=== PATIENT | male | born 1945 | race Caucasian/White ===

== ENCOUNTER 2024-11-05 13:23 | Emergency (ER) | payer MEDICARE, BC, SELFPAY ==
[2024-11-05 13:31] VITALS: BP 106/69
--- NOTE | 2024-11-05 14:40 | ED.GENMED ---
History of Present Illness
General
Chief Complaint: Fall
Source: patient
Time Seen by Provider: 11/05/24 14:33
History of Present Illness
History of Present Illness:
79-year-old male with past medical history of hypertension, hyperlipidemia, uch-[id number]-[id number] diabetes presenting to the emergency department for evaluation of right lower flank/back discomfort after an accidental fall this past Tuesday where
patiently fell forward onto the toilet, has mild bruising to the area and was concerned for rib injury. Patient states pain worsens with deep inspiration or coughing. Denies shortness of breath. No other injury sustained. Denies any
anticoagulants or head injury.
Past History
Past History
ED Past Medical History: Cancer, HTN, Hypercholesterolemia and NIDDM
ED Past Surgical History: Cholecystectomy, Orthopedic and Urological; Negative Cardiac
Social History
Tobacco: Non-smoker
Alcohol: None
Drug: None
Personal:
Living: with family
Employment: Retired
Family History
Family History: Hypertension
Review of Systems
Review of Systems
All Other Systems: ROS reviewed and negative except as documented in HPI and ROS
Phy Exam
Physical Exam
Physical Exam:
GENERAL: Alert , in no apparent distress
EYE: conjunctiva clear
NECK: Supple
ENT: o/p clr, mmm.
CARDIAC: Regular rate and rhythm
LUNGS: Clear breath sounds bilaterally, no acute respiratory distress, no wheezes/rales/rhonchi, mild tenderness over the area of ecchymosis within the right flank area
NEUROLOGICAL: Alert and oriented
SKIN: Warm and dry, skin intact. Ecchymosis to right flank area appears older and well-healing
MUSCULOSKELETAL: well perfused.
PSYCH: Normal and appropriate interaction.
Scores
Heart Failure Risk
Heart Failure Risk Score: Not Applicable
Heart Score for Chest Pain Patients
STEMI patient?: Not applicable
Withdrawal Assessment of Alcohol
Withdrawal Assessment Completed?: Not applicable
Course
Orders/Labs/Results
Orders:
Orders
11/05/24 13:35
CR Ribs-right 3 Vw W/pa Chest* Urgent
Comment:
Reason For Exam: fall
Vital Signs
Initial and Last Documented VS:
Initial Vital Signs
Temp Pulse Resp BP Pulse Ox
98.1 F 90 20 106/69 98
11/05/24 13:31 11/05/24 13:31 11/05/24 13:31 11/05/24 13:31 11/05/24 13:31
Last Documented Vital Signs
Temp Pulse Resp BP Pulse Ox
98.1 F 90 20 106/69 98
11/05/24 13:31 11/05/24 13:31 11/05/24 13:31 11/05/24 13:31 11/05/24 13:31
MDM/Problems Addressed
Differential Diagnosis Includes:
Rib fracture, contusion, pneumothorax, visceral injury
MDM/Problems Addressed:
79-year-old male presenting to the ER for evaluation after sustaining an accidental fall 5 days ago, continued pain to the right flank area with well-healing ecchymosis. Rib series performed which shows minimal displaced rib fractures of ribs 10
and 11. No other injuries noted. Patient hemodynamically stable and in no acute distress. I do not have concern for visceral injury given patient's stability 5 days following the injury. Patient stable for discharge home. Continue
NSAIDs/Tylenol as needed for pain. Will give short-term prescription for Clawson to be used for breakthrough pain. Patient advised on taking continued deep inspiration for prevention of atelectasis/pneumonia. Stable for discharge home.
*Radiology
Radiology exam reviewed: preliminary read by ED provider (10th and 11th rib fracture, no pneumothorax)
*Pulse Oximetry
Patient hypoxic: no
*Critical Care Note
Total Time (30-74mins, 75-104mins- exclusive of procedures): Not Applicable
ED Attending Note
-
Portions of this chart may have been created with voice recognition software.� Occasional wrong word or��sound alike� substitutions may have occurred due to the inherent limitations of voice recognition software.
Discharge Plan
Departure
Patient Disposition: Home (Routine Discharge)
Date of Disposition: 11/05/24
Time of Disposition: 14:40
Patient with high blood pressure during this ER visit?: No
Discharge Problem:
Accidental fall, Fracture of rib of right side
Instructions: Rib fracture or bruised rib - ED discharge instructions
Prescriptions:
New
hydrocodone-acetaminophen 5-325 mg tablet
1 tab PO BID PRN (Reason: Pain) Qty: 10 0RF
Rx Instructions:
Take stool softener with med to help with constipation
No Action
labetalol 200 MG tablet
200 mg PO BID
sertraline 100 MG tablet
200 mg PO DAILY
verapamil [Calan SR] 180 MG tablet extended release
240 mg PO DAILY
metformin 850 MG tablet
850 mg PO BID
trazodone 100 MG tablet
100 mg PO HS
aspirin 81 MG tablet,chewable
81 mg PO DAILY
hydrochlorothiazide 25 MG tablet
25 mg PO DAILY
lisinopril [Prinivil] 40 MG tablet
40 mg PO DAILY
rosuvastatin 20 MG tablet
20 mg PO QPM
cyclobenzaprine 10 MG tablet
10 mg PO TIDPRN PRN (Reason: muscle spasm) Qty: 12 0RF
hydrocodone-acetaminophen [Vicodin] 1 EACH tablet
1 ea PO Q4 PRN (Reason: pain) Qty: 14 0RF
Interventions
Interventions:
*Risk Screen - Suicide Last Done: 11/05/24 13:31
*General Assessment Last Done: 11/05/24 13:31
*Neglect/Abuse Screening Last Done: 11/05/24 13:31
ED-Musculoskeletal Assessment Last Done: 11/05/24 14:46
ED- Neurological Assessment Last Done: 11/05/24 14:46
ED-Skin Assessment Last Done: 11/05/24 14:46
Discharge Date and Time
Print Language: FRENCH
== END 2024-11-05 14:50 | disposition home or self-care (01) ==
LOC: EMR 13:23
PROVIDERS: EMERGENCY PHYSICIAN Student in an Organized Health Care Education/Training Program
DX: S22.41XA Multiple fractures of ribs, right side, initial encounter for closed fracture (principal); S30.1XXA Contusion of abdominal wall, initial encounter; W18.39XA Other fall on same level, initial encounter; I10 Essential (primary) hypertension; E78.00 Pure hypercholesterolemia, unspecified; E11.9 Type 2 diabetes mellitus without complications
CPT/HCPCS: 99283; 71101

== ENCOUNTER → 2025-02-25 14:31 | Outpatient (REF) | payer OTHER, SELFPAY | LOC: RCS 14:31 | PROVIDERS: ATTENDING PHYSICIAN Family Medicine | DX: R06.09 Other forms of dyspnea (principal) | CPT/HCPCS: 93306 ==

== ENCOUNTER 2025-02-26 16:17 | Inpatient (IN) | payer OTHER, SELFPAY ==
[2025-02-26 12:43] VITALS: BP 122/81
[2025-02-26 13:12] LABS: Hematocrit 38.1 % (39.0-52.0); Hemoglobin 12.8 g/dL (13.0-18.0); Mean Corp Hgb Conc. 33.6 g/dL (33.0-37.0); Mean Corpuscular Volume 87.0 fL (80.0-94.0); Nucleated Red Blood Cells % 0 % (-); Platelet Count 166 10^3/uL (130-400); Red Cell Dist. Width 13.2 % (11.5-14.5)
[2025-02-26 13:45] LABS: ALT (SGPT) 19 U/L (0-50); AST (SGOT) 25 U/L (17-59); Albumin 4.2 g/dl (3.5-5.0); Alkaline Phosphatase 40 U/L (38-126); Blood Urea Nitrogen 23 mg/dl (9-20); Calcium 9.2 mg/dl (8.4-10.2); Carbon Dioxide 25 mmol/L (22-30); Chloride 106 mmol/L (98-107); Glucose 282 mg/dl (70-99); Potassium 4.1 mmol/L (3.5-5.1); Sodium 141 mmol/L (135-145); Total Protein 6.5 g/dl (6.3-8.2); eGFR 56.58
[2025-02-26 13:54] LABS: Troponin I 0.023 ng/ml
--- NOTE | 2025-02-26 14:23 | ED.GENMED ---
History of Present Illness
<Ken Hickman MD, Resident - Last Filed: 02/26/25 14:28>
General
Chief Complaint: Cardiac Symptoms
Time Seen by Provider: 02/26/25 14:22
<Juan Miguel Saldivar MD - Last Filed: 02/26/25 15:11>
History of Present Illness
History of Present Illness:
Patient is a 79-year-old male with history of diabetes, hypertension, hyperlipidemia presenting to the emergency department for further evaluation. Patient states that he had an echo completed yesterday has been having dyspnea on exertion for the
past few months. No orthopnea edema or weight gain. No chest pain. Per chart review he had an echo completed yesterday that showed: -Left ventricular ejection fraction is 25-30%. Global hypokinesis with inferior
akinesis and septal dyskinesis. Abnormal (paradoxical) septal motion consistent
with left bundle branch block.
-Normal right ventricular size and function.
-Mild aortic stenosis; peak/mean gradients are 23/12 mmHg, calculated CHIVO of
1.5 cm2. Mild aortic regurgitation.
Past History
<Ken Hickman MD, Resident - Last Filed: 02/26/25 14:28>
Past History
ED Past Medical History: Cancer, HTN, Hypercholesterolemia and NIDDM
ED Past Surgical History: Cholecystectomy, Orthopedic and Urological; Negative Cardiac
Social History
Tobacco: Non-smoker
Alcohol: None
Drug: None
Personal:
Living: with family
Employment: Retired
Family History
Family History: Hypertension
Phy Exam
<Juan Miguel Saldivar MD - Last Filed: 02/26/25 15:11>
Physical Exam
Physical Exam:
GENERAL: in no acute distress
HEENT: normocephalic, extraocular movements intact, moist oral mucosa
NECK: normal inspection
RESPIRATORY: no respiratory distress, clear to auscultation bilaterally
CARDIOVASCULAR: regular rate and rhythm
ABDOMEN/: soft, non-distended, non-tender to palpation, no rebound or guarding
EXTREMITIES: non-tender, no edema/swelling
NEUROLOGIC: awake and alert, moves all extremities
SKIN: warm
Course
<Ken Hickman MD, Resident - Last Filed: 02/26/25 14:28>
Orders/Labs/Results
Orders:
Orders
02/26/25 12:23
Electrocardiogram (*1) Urgent
Reason for Study: Shortness of Breath
EKG- Treatment ONCE
02/26/25 12:59
Complete Blood Count/With Diff Urgent
Comprehensive Metabolic Panel Urgent
Troponin I Urgent
02/26/25 14:47
Add On- LAB Routine
Tests Added?: proBNP, Hgba1c
02/26/25 15:05
CXR2 [CR Chest - 2 Views ] Routine
Comment:
Reason For Exam: Shortness of breath, HFrEF
02/26/25 15:10
Consult Cardiology [CARDIOLOGY CONSULT] Urgent
Consulting Provider: Alonso Mcknight
Was physician already notified: Yes
Abnormal Lab Results
02/26/25
12:59
RBC 4.38 L 10^6/uL
(4.70-6.10)
Hgb 12.8 L g/dL
(13.0-18.0)
Hct 38.1 L %
(39.0-52.0)
Lymphocytes % 18.3 L %
(20.5-51.1)
BUN 23 H mg/dl
(9-20)
Glucose 282 H mg/dl
(70-99)
02/26/25 12:59
02/26/25 12:59
Vital Signs
Initial and Last Documented VS:
Initial Vital Signs
Temp Pulse Resp BP Pulse Ox
98.4 F 82 18 122/81 99
02/26/25 12:43 02/26/25 12:43 02/26/25 12:43 02/26/25 12:43 02/26/25 12:43
Last Documented Vital Signs
Temp Pulse Resp BP Pulse Ox
98.4 F 82 18 122/81 99
02/26/25 12:43 02/26/25 12:43 02/26/25 12:43 02/26/25 12:43 02/26/25 14:23
<Juan Miguel Saldivar MD - Last Filed: 02/26/25 15:11>
Orders/Labs/Results
Orders:
Orders
02/26/25 12:23
Electrocardiogram (*1) Urgent
Reason for Study: Shortness of Breath
EKG- Treatment ONCE
02/26/25 12:59
Complete Blood Count/With Diff Urgent
Comprehensive Metabolic Panel Urgent
Troponin I Urgent
02/26/25 14:47
Add On- LAB Routine
Tests Added?: proBNP, Hgba1c
02/26/25 15:05
CXR2 [CR Chest - 2 Views ] Routine
Comment:
Reason For Exam: Shortness of breath, HFrEF
02/26/25 15:10
Consult Cardiology [CARDIOLOGY CONSULT] Urgent
Consulting Provider: Alonso Mcknight
Was physician already notified: Yes
Abnormal Lab Results
02/26/25
12:59
RBC 4.38 L 10^6/uL
(4.70-6.10)
Hgb 12.8 L g/dL
(13.0-18.0)
Hct 38.1 L %
(39.0-52.0)
Lymphocytes % 18.3 L %
(20.5-51.1)
BUN 23 H mg/dl
(9-20)
Glucose 282 H mg/dl
(70-99)
02/26/25 12:59
02/26/25 12:59
Vital Signs
Initial and Last Documented VS:
Initial Vital Signs
Temp Pulse Resp BP Pulse Ox
98.4 F 82 18 122/81 99
02/26/25 12:43 02/26/25 12:43 02/26/25 12:43 02/26/25 12:43 02/26/25 12:43
Last Documented Vital Signs
Temp Pulse Resp BP Pulse Ox
98.4 F 82 18 122/81 99
02/26/25 12:43 02/26/25 12:43 02/26/25 12:43 02/26/25 12:43 02/26/25 14:23
<Juan Miguel Saldivar MD - Last Filed: 02/26/25 15:11>
MDM/Problems Addressed
Differential Diagnosis Includes:
Patient is a 79-year-old male with history of hypertension, hyperlipidemia presented to the emergency department for further evaluation after an abnormal echo. His only symptom currently is dyspnea on exertion. On arrival patient's lungs are clear
to auscultation and he does not appear volume overloaded. He does not appear to be in a CHF exacerbation. EKG per my interpretation consistent with left bundle branch block. Discussed with cardiology who recommended hospitalist admission. They
will eval patient here in the ED.
<Ken Hickman MD, Resident - Last Filed: 02/26/25 14:28>
*Pulse Oximetry
SaO2: 99
Oxygen Mode of Delivery: Room air
<Juan Miguel Saldivar MD - Last Filed: 02/26/25 15:11>
*Pulse Oximetry
Patient hypoxic: no (99)
*Critical Care Note
Total Time (30-74mins, 75-104mins- exclusive of procedures): Not Applicable
ED Attending Note
<Ken Hickman MD, Resident - Last Filed: 02/26/25 14:28>
-
Portions of this chart may have been created with voice recognition software.� Occasional wrong word or��sound alike� substitutions may have occurred due to the inherent limitations of voice recognition software.
Discharge Plan
Departure
Patient Disposition: Admit
Date of Disposition: 02/26/25
Time of Disposition: 15:09
Presentation/result/management discussed w/ accepting MD/DO: Hospitalist
Discharge Problem:
Dyspnea on exertion
Prescriptions:
No Action
labetalol 200 MG tablet
200 mg PO BID
sertraline 100 MG tablet
200 mg PO DAILY
verapamil [Calan SR] 180 MG tablet extended release
240 mg PO DAILY
metformin 850 MG tablet
850 mg PO BID
trazodone 100 MG tablet
100 mg PO HS
aspirin 81 MG tablet,chewable
81 mg PO DAILY
hydrochlorothiazide 25 MG tablet
25 mg PO DAILY
lisinopril [Prinivil] 40 MG tablet
40 mg PO DAILY
rosuvastatin 20 MG tablet
20 mg PO QPM
cyclobenzaprine 10 MG tablet
10 mg PO TIDPRN PRN (Reason: muscle spasm) Qty: 12 0RF
hydrocodone-acetaminophen [Vicodin] 1 EACH tablet
1 ea PO Q4 PRN (Reason: pain) Qty: 14 0RF
hydrocodone-acetaminophen 5-325 mg tablet
1 tab PO BID PRN (Reason: Pain) Qty: 10 0RF
Rx Instructions:
Take stool softener with med to help with constipation
Referrals:
Claritza Edward MD [Family Provider, Family Practice]
Interventions
Interventions:
*Risk Screen - Suicide Last Done: 02/26/25 12:43
*General Assessment Last Done: 02/26/25 12:43
*Neglect/Abuse Screening Last Done: 02/26/25 12:43
Discharge Date and Time
Print Language: CITIZEN OF [place]
--- NOTE | 2025-02-26 14:43 | CON.CAR ---
Addendum entered and electronically signed by Alonso Mcknight MD 02/26/25 16:01:
I saw and examined the patient.
The CLEANING MATRON's note was reviewed and I agree with the note.
Comment: 79-year-old male with LBBB, hypertension, dyslipidemia, type 2 diabetes mellitus, depression, and testicular cancer who presented to the emergency department with a chief complaint of dyspnea on exertion. He had an echocardiogram that
showed an LVEF of 25-30%.
- RHC/LHC tomorrow
- GDMT with Case management [id number] and ARNi
Original Note:
Consultation
Consultation Request
Date/Time Consultation Requested: 02/26/2025 14:30
Date/Time Consultation Performed: 02/26/2025 14:45
Requesting Provider: Dr. Saldivar
Performing Provider: AIMEE Cid for Dr. Mcknight
Reason for Consultation: Abnormal echocardiogram
Medical History
-
Chief Complaint: Dyspnea on exertion
History of Present Illness:
Dakota Navarro is a 79-year-old male with LBBB, hypertension, dyslipidemia, type 2 diabetes mellitus, depression, and testicular cancer who presented to the emergency department with a chief complaint of dyspnea on exertion. This started 6 months ago.
It has been getting worse. It is exceptionally worse when he uses the steps. He was referred for stress testing and echocardiogram by his PCP. He had an echocardiogram that showed an LVEF of 25-30%. An ETT was ordered but he has a left bundle
branch block. At the time of this consultation, he was not short of breath at rest.
Past Medical History
Past Medical History: Cancer (Testicular), HTN, Hypercholesterolemia, NIDDM and Psychiatric (Depression)
Past Surgical History: Cholecystectomy, Orthopedic and Urological (Orchiectomy for testicular cancer)
Social History
Tobacco: Non-Smoker
Alcohol: None
Drug: None
Living: Alone (On daughter's property)
Employment: Retired
Family History
Family History: Reviewed & Not Pertinent
Allergies / Home Medications
Allergy/AdvReac Type Severity Reaction Status Date / Time
No Known Allergies Allergy Verified 02/26/25 12:43
�Medication �Instructions �Recorded �Confirmed �Type
aspirin 81 mg chewable tablet 81 mg PO DAILY 10/16/12 07/11/14 History
hydrochlorothiazide 25 mg tablet 25 mg PO DAILY 10/16/12 07/11/14 History
labetalol 200 mg tablet 200 mg PO BID 10/16/12 07/11/14 History
lisinopril 40 mg tablet (Prinivil) 40 mg PO DAILY 10/16/12 07/11/14 History
metformin 850 mg tablet 850 mg PO BID 10/16/12 07/11/14 History
rosuvastatin 20 mg tablet 20 mg PO QPM 10/16/12 07/11/14 History
sertraline 100 mg tablet 200 mg PO DAILY 10/16/12 07/11/14 History
trazodone 100 mg tablet 100 mg PO HS 10/16/12 07/11/14 History
verapamil 180 mg tablet,extended 240 mg PO DAILY 10/16/12 07/11/14 History
release (Calan SR)
cyclobenzaprine 10 mg tablet 10 mg PO TIDPRN PRN muscle spasm 07/11/14 Rx
#12 tabs
hydrocodone 5 mg-acetaminophen 300 1 ea PO Q4 PRN pain #14 tabs 07/11/14 Rx
mg tablet (Vicodin)
hydrocodone 5 mg-acetaminophen 325 1 tab PO BID PRN Pain #10 tabs 11/05/24 Rx
mg tablet
Review of Systems
-
History Source: Patient
All other systems: Negative unless noted
Constitutional: No Symptoms
EENT: No Symptoms
Respiratory: No Symptoms
Cardiac: No Symptoms
Abdomen/GI: No Symptoms
: No Symptoms
Musculoskeletal: No Symptoms
Skin: No Symptoms
Neurological: No Symptoms
Endocrine: No Symptoms
Hematologic/Lymphatic: No Symptoms
Physical Exam
Vital Signs
Temp Pulse Resp BP Pulse Ox
98.4 F 82 18 122/81 99
02/26/25 12:43 02/26/25 12:43 02/26/25 12:43 02/26/25 12:43 02/26/25 14:23
Lab Results
02/26/25 12:59
02/26/25 12:59
Troponin I 0.023 ng/ml 02/26/25 12:59
Physical Exam
General: Well Developed, Well Nourished, No Apparent Distress and Comfortable
HEENT: Normocephalic, Anicteric and Moist Mucous Membranes
Respiratory: Clear and Non Labored Respirations
Cardiac: S1/S2 and Regular Rhythm
Breast: Deferred by me
GI: Soft, Non Tender, Non Distended and Normal Bowel Sounds
Rectal: Deferred by Provider
Genito-urinary: No Costovertebral Tender
Musculoskeletal: No Clubbing, No Cyanosis and No Edema
Skin: Warm and Dry
Neuro: AO x 3
Hematologic/Lymphatic: No Lymphadenopathy
Psych: Calm
Impression / Plan
-
I/P: 79M with LBBB, hypertension, dyslipidemia, type 2 diabetes mellitus, depression, and testicular cancer who presented to the emergency department with a chief complaint of dyspnea on exertion.
Outpatient distribution designer: None, will be Dr. Mcknight
HFrEF (EF 25-30%), acute on chronic
Cardiomyopathy, type unknown
- Hold diuresis, await proBNP and CXR
- Cardiac catheterization tomorrow, he believes he had one 'a number of years ago' he is unsure of which facility, continue ASA
- GDMT as tolerated:
-NIKOLAI/ARB/ARNI: Case Management to [facility] Entresto. Hold lisinopril.
-SGLT2 inhibitor: [facility] Management to [facility]
-Aldosterone agonist: No hyperkalemia, can consider
-Beta david: Start metoprolol succinate 25mg twice daily. Stop verapamil.
-Isosorbide/Hydralazine:�Not currently indicated
-ICD: Re-assess LVEF in 3 months after maximally tolerated therapy
- Trend daily weight, I/O, and BMP
CKD
- Creatinine 1.27 last year
- Trend
Aortic stenosis, mild, peak/mean gradients 23/12 mmHg, CHIVO 1.5 cm2
LBBB, chronic
Type 2 diabetes mellitus, with hyperglycemia, HgbA1c pending, per primary service
Dyslipidemia, most recent LDL 80 last year, fasting lipid panel in am
Data Reviewed
-
EKG: Report Reviewed by me
Medical Tests (Nuc Med, Echo etc): Report Reviewed by me
Labs: Labs Reviewed by me
Old Records: Reviewed
--- NOTE | 2025-02-26 15:23 | HPS.HSE ---
Family Physician
-
Family Physician: Claritza Edward MD
Chief Complaint
-
Dyspnea on Exertion
History of Present Illness
Patient is a 79 y/o male past medical history of DM, CKD, HTN, Hyperlipidemia and Depression who presents with dyspnea on exertion. Patient reports increasing dyspnea on exertion for the past several months. Symptoms have worsened to the point he
cannot walk up a flight of stairs without feeling short of breath. Patient had an echocardiogram yesterday which revealed significantly reduced EF as well global hypokinesis with inferior wall akineses. After receiving the result patient was
referred to the emergency departmen for evaliation. Ptient denies any chest pain, palpitaitons or lower extremity edema.
Medical History
Past Medical History
Past Medical History: Reports Other
Additional Past Medical History:
Diabetes Mellitus, Type II
Essential Hypertension
Hyperlipidemia
CKD Stage
Depression
Insomnia
Testicular Cancer
Past Surgical History: Reports Other
Additional Past Surgical History:
Orchiectomy with Lymph Node Dissection
Cholecystectomy
Spinal Surgery
Social History
Tobacco: Non-smoker
Alcohol: None
Family History
Family History: Not pertinent
Allergies / Home Medications
Allergies reflects when Allergies were last updated in [employer].
Home Medications with original date entered in [employer]
Allergy/Medication List:
Allergies
Allergy/AdvReac Type Severity Reaction Status Date / Time
No Known Allergies Allergy Verified 02/26/25 12:43
Home Medications
aspirin 81 mg chewable tablet 81 mg PO DAILY 10/16/12
hydrochlorothiazide 25 mg tablet 25 mg PO DAILY 10/16/12
rosuvastatin 20 mg tablet 20 mg PO DAILY 10/16/12
duloxetine 60 mg capsule,delayed release 60 mg PO DAILY 02/26/25
glipizide 10 mg tablet 10 mg PO BID 02/26/25
lisinopril 40 mg tablet 40 mg PO DAILY 02/26/25
sitagliptin phos 50 mg-metformin ER 1,000 mg tablet,extend rel 24h mp (Janumet XR) 1 tab PO BID 02/26/25
therapeutic multivitamin 1 tab PO DAILY 02/26/25
verapamil 240 mg tablet,extended release 240 mg PO DAILY 02/26/25
Review of Systems
-
History Source: Patient
A 12 point ROS was completed and negative except as noted: Yes
Constitutional: Denies Fever or Chills
Respiratory: Reports Trouble Breathing; Denies Cough
Cardiac: Denies Chest Pain or Palpitations
Abdomen/GI: Denies Abdominal Pain, Nausea, Vomiting, Diarrhea or Constipated
Physical Exam
Vital Signs
Vital Signs
Temp Pulse Resp BP Pulse Ox
98.4 F 82 18 122/81 99
02/26/25 12:43 02/26/25 12:43 02/26/25 12:43 02/26/25 12:43 02/26/25 14:23
Physical Exam
General: Well Developed, Well Nourished and No Apparent Distress
HEENT: NormoCephalic, Anicteric, Moist mucous membranes and Atraumatic
Respiratory: Clear and Non Labored Respirations; No Wheezes, Rales or Rhonchi
Cardiac: S1/S2, Regular Rhythm and Murmur (Systolic Murmur)
GI: Soft, Non Tender, Non Distended and Normal Bowel Sounds
Rectal: Deferred by Provider
Musculoskeletal: No Clubbing, No Cyanosis and No Edema
Skin: Warm and Dry; No Rash
Neuro: Awake, Alert, Oriented and Nonfocal/grossly intact
Psych: Calm
Laboratory Results
-
02/26/25 12:59
02/26/25 12:59
Laboratory Results
Total Bilirubin 0.7 mg/dl (0.2-1.3) 02/26/25 12:59
AST 25 U/L (17-59) 02/26/25 12:59
ALT 19 U/L (0-50) 02/26/25 12:59
Alkaline Phosphatase 40 U/L (38-126) 02/26/25 12:59
Troponin I 0.023 ng/ml 02/26/25 12:59
Data Reviewed
-
Diagnostic Radiology: Report Reviewed by me
Medical Tests (Nuc Med, Echo, EKG etc): Report Reviewed by me
Lab Data: Labs Reviewed by me
Impression/Plan
-
Newly Diagnosed Heart Failure with Reduced EF
Newly Diagnosed Cardiomyopathy, unknown type
-Consult Cardiology
-NPO after midnight for cardiac cath tomorrow
-Diuretics to be determined following cardiac cath
-Continue aspirin
-Hold Lisinopril in anticipation of starting Entresto
-Monitor Daily Weights
Diabetes Mellitus, Type II with Hyperglycemia
-Metformin on hold for cardiac cath
-Continue Januvia and Glipizide
-Patient would benefit from starting SGLT2 Inhibitor in setting of heart failure - Await pricing from [employer]
-Monitor sugars and continue coverage insulin
Essential Hypertension
-Hold HCTZ in favor of starting Lasix/Spironolactone in setting of heart failure
-Lisinopril no hold as above
-Hold verapamil and start Metoprolol as per Cardiology
CKD Stage III
-Creatinine at baseline
-Monitor renal function closely as medications are added for heart failure
Hyperlipidemia
-Continue rosuvastatin
Depression
-Continue Cymbalta
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
DVT proph: SC Heparin
Code Status: Full Code
[2025-02-26 15:50] VITALS: BP 136/73
[2025-02-26 15:51] VITALS: BMI 31.9
--- NOTE | 2025-02-26 16:32 | W.PN.UPDATE ---
Update Note
Progress Note Update
This is an addendum to H&P written by Rubina Keene on 02/26/2025. �Patient seen and examined independently with PA.
79-year-old male past medical history of hypertension, left bundle branch block, type 2 diabetes, hyperlipidemia, depression, testicular cancer as post orchiectomy and lymph node dissection, presenting with increased dyspnea on exertion for months.
Had echocardiogram yesterday which showed ejection fraction with reduced EF and told to come here.
Blood sugar 280.
Chest x-ray shows clear lungs, no significant change compared to prior.
EF shows ejection fraction 25 to 30%, global hypokinesis, septal dyskinesis. �New left bundle branch block, mild aortic stenosis, mild aortic regurgitation.
Patient with evidence of heart failure on echo although not overtly volume overloaded. �Cardiology starting guideline directed medical therapy. �Verapamil to be held and metoprolol being started. �Lisinopril being held in anticipation of starting
Entresto. Hold HCTZ. �N.p.o. past midnight for cardiac catheterization tomorrow. �Diuresis to be determined tomorrow.
Hyperglycemia secondary to tach adequately treated diabetes. �Would greatly benefit from SGLT2 inhibitor. �Check hemoglobin A1c. �For now hold metformin, continue Januvia, glipizide. �Insulin sliding scale.
[2025-02-26 17:00] VITALS: BP 140/112
[2025-02-26 17:27] LABS: Glucose - Point of Care 139 mg/dl (70-99)
[2025-02-26 17:32] VITALS: BP 146/77; BMI 31.0
[2025-02-26] MEDS: GLUCOTROL 10 MG PO (18:32)
[2025-02-26 19:00] VITALS: BP 115/63; BP 159/82; BP 94/74; PULSE 73; PULSE 76; PULSE 84
[2025-02-26] MEDS: TOPROL XL 25 MG PO (20:42)
[2025-02-26 21:07] LABS: Glucose - Point of Care 183 mg/dl (70-99)
--- NOTE | 2025-02-26 21:16 | PTCARENOTE ---
Patient was asked and offered oral care multiple times, but refused care.
[2025-02-26 23:00] VITALS: BP 150/84
[2025-02-26] MEDS: HEPARIN 5000 UNITS SC (23:46)
[2025-02-27 03:00] VITALS: BP 146/87
[2025-02-27 04:52] VITALS: BMI 30.7
[2025-02-27 05:30] LABS: Hematocrit 35.4 % (39.0-52.0); Hemoglobin 12.2 g/dL (13.0-18.0); Mean Corp Hgb Conc. 34.5 g/dL (33.0-37.0); Mean Corpuscular Volume 85.7 fL (80.0-94.0); Platelet Count 151 10^3/uL (130-400); Red Cell Dist. Width 13.1 % (11.5-14.5)
[2025-02-27 05:54] LABS: Blood Urea Nitrogen 21 mg/dl (9-20); Calcium 9.8 mg/dl (8.4-10.2); Carbon Dioxide 29 mmol/L (22-30); Chloride 108 mmol/L (98-107); Estimated Creatinine Clearance 60 ml/min; Glucose 144 mg/dl (70-99); Magnesium 1.7 mg/dl (1.6-2.3); Potassium 4.0 mmol/L (3.5-5.1); Sodium 141 mmol/L (135-145); eGFR > 60.00
[2025-02-27 06:18] LABS: Glucose - Point of Care 149 mg/dl (70-99)
[2025-02-27] MEDS: NOVOLOG FLEXPEN-LOW RESISTANCE SC (06:20)
[2025-02-27 07:48] VITALS: BP 147/81
[2025-02-27 08:10] LABS: Glycohemoglobin (HgbA1c) 8.0 % (4.0-5.6)
[2025-02-27] MEDS: CRESTOR 20 MG PO (08:20)
[2025-02-27] MEDS: TOPROL XL 25 MG PO ×2 (08:20→20:42)
[2025-02-27] MEDS: CYMBALTA DELAYED RELEASE 60 MG PO (08:20)
[2025-02-27] MEDS: JANUVIA 100 MG PO (08:20)
[2025-02-27] MEDS: LOW STRENGTH ASPIRIN 81 MG PO (08:21)
[2025-02-27] MEDS: HEPARIN 5000 UNITS SC (08:21)
[2025-02-27] MEDS: GLUCOTROL 10 MG PO ×2 (09:23→17:13)
--- NOTE | 2025-02-27 10:14 | CM ---
Request for med pricing from [facility]; pricing sent via [employer].
Entresto 24-26 BID $2 for 30 days
Jardiance 10mg daily $2 for 30 days
Farxiga 10mg daily $15 for 30 days
--- NOTE | 2025-02-27 10:15 | CM ---
CM following for discharge planning for this patient who was admitted yesterday via the ED.
Pricing for medications requested by Dede Sr:
Entresto 24-26 BID $2 for 30 days
Jardiance 10mg daily $2 for 30 days
Farxiga 10mg daily $15 for 30 days
--- NOTE | 2025-02-27 11:22 | ITS.CL.PN ---
Allergy Physician - Procedure Note
Procedure
Procedure Note:
CARDIAC CATHETERIZATION REPORT
Date of Procedure: 02/27/2025
Referring: Dr. Naveen Cadet MD
Indication: new heart failure with severely reduced ejection fraction
PROCEDURE(S)
1. right heart catheterization
2. coronary angiography
ACCESS
1. 6F right radial artery (closure: radial band)
2. 5F right antecubital vein (closure: manual hemostasis)
CATHETERS
1. 5F Jeremiah-Jonathan
2. 6F JR4
3. 6F JL3.5
MODERATE SEDATION: 30 minutes of moderate sedation was utilized. An independent medical delivery driver was present to assist with and help manage the patient's level of consciousness and physiologic status.
HEMODYNAMIC DATA
AO 156/82 (mean 110) mmHg
RA 12 mmHg
RV 31/6 (EDP 11) mmHg
PA 32/14 (mean 22) mmHg
PCWP 15 mmHg
SaO2 94.5%
SvO2 58.6%
Hb 12.4 g/dL
CO/CI 4.43/2.06 L/min/m2
SVR 1769 dsc*-5
PVR 1.6 Wood units
CORONARY ANGIOGRAPHY
Dominance: Right
LM: large, normal
LAD: large vessel giving rise to a moderate caliber diagonal branch. There is a segment of calcified disease up to 20% just before the takeoff of D1. There is mild ostial narrowing of D1. There is otherwise mild diffuse disease.
LCx: large dominant vessel giving rise to a moderate caliber OM1, large bifurcating OM2, and small LPDA. There is mild diffuse disease.
RCA: small non-dominant with diffuse disease proximally up to 70% focally.
RADIATION: dose 350 mGy; DAP 19.7 Gy*cm2; fluoroscopy time 7.6 min
CONCLUSIONS
1. 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
2. Mildly elevated biventricular filling pressure, normal pulmonary artery pressure, and reduced cardiac index.
RECOMMENDATIONS
1. Further workup for etiology of non-ischemic cardiomyopathy
2. Titration of GDMT for heart failure - will add dapagliflozin today and Entresto tonight (allowing 36 hours for NIKOLAI washout)
3. Aggressive secondary prevention of CAD with ASA and high intensity statin for goal LDL<70
Copy to: Dr. Claritza Edward MD (PCP)
Signed: Braden Samuel MD, PhD
--- NOTE | 2025-02-27 11:48 | W.PN.CD ---
Today's Communication / Plan
-
non-obstructive CAD on cath
filling pressures ok, no diuresis today
start dapagliflozin today and entresto tonight
Impression / Plan
-
I/P: 79M with LBBB, hypertension, dyslipidemia, type 2 diabetes mellitus, depression, and testicular cancer who presented to the emergency department with a chief complaint of dyspnea on exertion.
Outpatient radiology teacher: None, will be Dr. Mcknight
HFrEF (EF 25-30%), acute on chronic
Cardiomyopathy, type unknown
- cardiac cath with non-obstructive CAD
- Hold diuresis for now, filling pressures not too elevated on cath today
- GDMT as tolerated:
-NIKOLAI/ARB/ARNI: entresto tonight (36 hours post lisinopril)
-SGLT2 inhibitor: dapagliflozin starting today
-Aldosterone agonist: No hyperkalemia, can consider
-Beta david: cont. metoprolol succinate 25mg twice daily
-Isosorbide/Hydralazine:�Not currently indicated
-ICD: Re-assess LVEF in 3 months after maximally tolerated therapy
- Trend daily weight, I/O, and BMP
CKD
- Creatinine 1.27 last year
- Trend
CAD, non-obstructive
- cont. asa/statin for eventual goal LDL<70
Aortic stenosis, mild, peak/mean gradients 23/12 mmHg, CHIVO 1.5 cm2
LBBB, chronic
Type 2 diabetes mellitus, with hyperglycemia, per primary service, may be able to back off on some oral anti-diabetic meds with addition of SGLT2i
Dyslipidemia, most recent LDL 80 last year, fasting lipid panel in am
Physical Exam
Vital Signs/Labs
Vital Signs
Temp Pulse Resp BP Pulse Ox
37.1 C 64 14 147/81 96
02/27/25 07:48 02/27/25 07:48 02/27/25 07:48 02/27/25 07:48 02/27/25 07:48
02/26/25 02/27/25 02/28/25
06:59 06:59 06:59
Actual Weight 97.023 kg
02/27/25 05:14
02/27/25 05:14
Magnesium 1.7 mg/dl (1.6-2.3) 02/27/25 05:14
02/26/25
12:59
Fgr-V-Txqsellthog Pept 1630
LAB Results
02/26/25
12:59
Troponin I 0.023
Physical Exam
Constitutional: Comfortable
Cardiovascular: Rhythm & rate is regular
Respiratory: Respiratory effort normal
Neuro/Psych: AO x 3
Data Reviewed
-
Date of Service: February 27, 2025
Medical Decision Making: Reviewed Test Results
EKG: Tracing Personally Visualized and interpreted
Echo: Tracing Personally Visualized and interpreted
Labs: Labs Reviewed by me
[2025-02-27 11:51] LABS: Glucose - Point of Care 167 mg/dl (70-99)
[2025-02-27] MEDS: FARXIGA 10 MG PO (11:52)
[2025-02-27] MEDS: NOVOLOG FLEXPEN-LOW RESISTANCE 1 UNITS SC (13:17)
--- NOTE | 2025-02-27 14:32 | W.PN.HOSP.TC ---
Today's Communication/Plan
-
Discharge tomorrow if cleared by cardiology
Assessment / Plan
Assessment / Plan
HPI: 79 y/o male past medical history of DM, CKD, HTN, Hyperlipidemia and Depression who presents with dyspnea on exertion. Patient reports increasing dyspnea on exertion for the past several months. Symptoms have worsened to the point he cannot
walk up a flight of stairs without feeling short of breath. Patient had an echocardiogram yesterday which revealed significantly reduced EF as well global hypokinesis with inferior wall akineses. After receiving the result patient was referred to
the emergency departmen for evaliation. Ptient denies any chest pain, palpitaitons or lower extremity edema.
Newly Diagnosed Heart Failure with Reduced EF
Newly Diagnosed Cardiomyopathy, unknown type
- Appreciate cardiology input, status post cardiac catheterization 02/27 showing nonobstructive coronary artery disease, mildly elevated biventricular filling pressure
- Cardiology recommends treatment with aspirin, high intensity statin for goal LDL less than 70, adding dapagliflozin today and Entresto tonight allowing 36 hours for lisinopril washout
- Probable discharge tomorrow if cleared by cardiology
Diabetes Mellitus, Type II with Hyperglycemia
-Metformin on hold s/p cardiac cath
-Continue Januvia and Glipizide
-Hemoglobin A1c 8.0, adding dapagliflozin for CHF
Essential Hypertension
- Discontinue home hydrochlorothiazide, lisinopril, verapamil
- Cardiology recommends Toprol XL 25 mg twice a day, and Entresto
CKD Stage III
-Creatinine at baseline
-Monitor renal function closely as medications are added for heart failure
Hyperlipidemia
-Continue rosuvastatin
Depression
-Continue Cymbalta
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
DVT proph: Change subcu heparin to subcu Lovenox daily
Code Status: Full Code
Total time spent to see the patient on the floor, examine the patient, review data and lab results, discuss treatment plan with patient, nursing staff around 40 minutes.
Physical Exam
General: No acute distress
HEENT: Normocephalic, Atraumatic, EOMI, MMM
Respiratory: Clear to Auscultation bilaterally
Cardiac: Normal S1/S2, Regular Rate and Rhythm
GI: Soft, Nontender, Nondistended, Normal Bowel Sounds
Extremities: No Clubbing, Cyanosis, or Edema
Neuro: Nonfocal/Grossly Intact
Psych: Calm, Cooperative
Derm: No Visible lesions
Anticipated Discharge: Within 24 hours
Subjective/Interval History
-
Date of Service: February 27, 2025
Patient seen and examined in the morning prior to his cardiac catheterization. He complained of feeling tired and hungry. Denied chest pain, denied shortness of breath. No fever, no vomiting.
Objective Data
-
Labs:
Laboratory Results
02/27/25
05:14
WBC 8.0
Hgb 12.2 L
Hct 35.4 L
Plt Count 151
Sodium 141
Potassium 4.0
Chloride 108 H
Carbon Dioxide 29
BUN 21 H
Creatinine 1.2
Glucose 144 H
Calcium 9.8
Vital Signs:
Vital Signs
Temp Pulse Resp BP Pulse Ox
98.7 F 64 14 147/81 96
02/27/25 07:48 02/27/25 07:48 02/27/25 07:48 02/27/25 07:48 02/27/25 07:48
I&O
02/26/25 02/27/25 02/28/25
06:59 06:59 06:59
Intake Total 240 / 240
Balance 240 / 240
[2025-02-27 15:52] VITALS: BP 155/82
[2025-02-27 16:48] LABS: Glucose - Point of Care 216 mg/dl (70-99)
[2025-02-27] MEDS: LOVENOX 40 MG SC (17:19)
[2025-02-27] MEDS: NOVOLOG FLEXPEN-LOW RESISTANCE 2 UNITS SC (18:21)
[2025-02-27 19:00] VITALS: BP 135/83
[2025-02-27] MEDS: ENTRESTO 24 MG/26 MG 1 TAB PO (20:43)
[2025-02-27 21:37] LABS: Glucose - Point of Care 162 mg/dl (70-99)
[2025-02-27 23:00] VITALS: BP 160/86
[2025-02-27 23:39] VITALS: BP 144/66
[2025-02-28 03:00] VITALS: BP 141/74
[2025-02-28 05:44] LABS: Hematocrit 36.7 % (39.0-52.0); Hemoglobin 12.8 g/dL (13.0-18.0); Mean Corp Hgb Conc. 34.9 g/dL (33.0-37.0); Mean Corpuscular Volume 85.3 fL (80.0-94.0); Platelet Count 149 10^3/uL (130-400); Red Cell Dist. Width 12.9 % (11.5-14.5)
[2025-02-28 06:00] VITALS: BMI 30.7
[2025-02-28 06:16] LABS: Blood Urea Nitrogen 21 mg/dl (9-20); Calcium 9.7 mg/dl (8.4-10.2); Carbon Dioxide 26 mmol/L (22-30); Chloride 105 mmol/L (98-107); Estimated Creatinine Clearance 56 ml/min; Glucose 176 mg/dl (70-99); HDL Cholesterol 34 mg/dl; LDL Cholesterol, Calculated 64 mg/dl; Potassium 3.9 mmol/L (3.5-5.1); Sodium 140 mmol/L (135-145); Very Low Density Lipoprotein 31 mg/dl (0-30); eGFR 56.58
[2025-02-28 07:43] VITALS: BP 159/84
[2025-02-28 07:46] LABS: Glucose - Point of Care 172 mg/dl (70-99)
[2025-02-28] MEDS: JANUVIA 100 MG PO (08:06)
[2025-02-28] MEDS: FARXIGA 10 MG PO (08:06)
[2025-02-28] MEDS: LOW STRENGTH ASPIRIN 81 MG PO (08:06)
[2025-02-28] MEDS: GLUCOTROL 10 MG PO (08:06)
[2025-02-28] MEDS: ENTRESTO 24 MG/26 MG 1 TAB PO (08:06)
[2025-02-28] MEDS: TOPROL XL 25 MG PO (08:06)
[2025-02-28] MEDS: CRESTOR 20 MG PO (08:06)
[2025-02-28] MEDS: CYMBALTA DELAYED RELEASE 60 MG PO (08:06)
--- NOTE | 2025-02-28 09:10 | W.PN.CD ---
Today's Communication / Plan
-
He is stable for discharge from cardiovascular standpoint.
Discharge medication regimen:
- HFrEF: Low-dose Entresto, dapagliflozin 10 mg daily, metoprolol 25 twice daily; add spironolactone at office visit in 2 weeks; no Lasix as he is euvolemic (dry weight 213 lb)
- Nonobstructive CAD: Aspirin, rosuvastatin 20
BMP in 1 week. This was ordered electronically and sent to [facility].
Our office will schedule hospital discharge visit in 2-4 weeks.
Impression / Plan
-
I/P: 79M with LBBB, hypertension, dyslipidemia, type 2 diabetes mellitus, depression, and testicular cancer who presented to the emergency department with a chief complaint of dyspnea on exertion.
Outpatient team assembly line machine operator: None, will be Dr. Mcknight
HFrEF (EF 25-30%), acute on chronic
Nonischemic cardiomyopathy
- cardiac cath with non-obstructive CAD
- No need for diuresis. PCWP normal for EF on RHC yesterday. Dry weight 213 lb
- GDMT as tolerated:
-NIKOLAI/ARB/ARNI: Low-dose Entresto added this admission
-SGLT2 inhibitor: Dapagliflozin added this admission
-Aldosterone agonist: Will add in 2 weeks assuming labs look okay
-Beta david: cont. metoprolol succinate 25mg twice daily
-Isosorbide/Hydralazine:�Not currently indicated
-ICD: Re-assess LVEF in 3 months after maximally tolerated therapy
- Trend daily weight, I/O, and BMP
CKD
- Creatinine 1.27 last year
- Trend
CAD, non-obstructive
- cont. asa/statin for eventual goal LDL<70
Aortic stenosis, mild, peak/mean gradients 23/12 mmHg, CHIVO 1.5 cm2
LBBB, chronic
Type 2 diabetes mellitus, with hyperglycemia, per primary service, may be able to back off on some oral anti-diabetic meds with addition of SGLT2i
Subjective: He feels fine at rest. He cannot tell if his ARMENDARIZ is improved because he has not been up and out of bed. He says he is not spending another night in the hospital. He would like a print out of all the side effects of his new medications
because he is worried that the side effects may be worse than what he is currently experiencing.
Physical Exam
Vital Signs/Labs
Vital Signs
Temp Pulse Resp BP Pulse Ox
98.3 F 64 14 159/84 98
02/28/25 07:43 02/28/25 07:43 02/28/25 07:43 02/28/25 07:43 02/28/25 07:43
02/27/25 02/28/25 03/01/25
06:59 06:59 06:59
Actual Weight 213 lb 14.4 oz 213 lb 14.4 oz
02/28/25 05:22
02/28/25 05:22
Magnesium 1.7 mg/dl (1.6-2.3) 02/27/25 05:14
Triglycerides 156 mg/dl (10-149) H 02/28/25 05:22
LDL Cholesterol, Calc 64 mg/dl 02/28/25 05:22
VLDL Cholesterol, Calc 31 mg/dl (0-30) H 02/28/25 05:22
HDL Cholesterol 34 mg/dl 02/28/25 05:22
02/26/25
12:59
Avy-O-Oolskmdjqjz Pept 1630
LAB Results
02/26/25
12:59
Troponin I 0.023
Physical Exam
Constitutional: No acute distress and Comfortable
Cardiovascular: Rhythm & rate is regular, Pedal edema is absent, S1S2 is normal and Murmur/rub/gallop absent
Respiratory: Respiratory effort normal and Lungs clear to auscul.
Neuro/Psych: AO x 3
Other: Cath Site (R radial and axillary sites without swelling or erythema)
Data Reviewed
-
Date of Service: February 28, 2025
Medical Decision Making: Reviewed Test Results, Independent Historian Assessment, Test Interpretation and Review of Case with other Provider
EKG: Tracing Personally Visualized and interpreted
Echo: Report Reviewed by me
Medical Tests (PFT, Pathology etc): Report Reviewed by me
Labs: Labs Reviewed by me
--- NOTE | 2025-02-28 09:13 | W.PN.HOSP.TC ---
Today's Communication/Plan
-
Cleared by cardiology for discharge today
Assessment / Plan
Assessment / Plan
HPI: 79 y/o male past medical history of DM, CKD, HTN, Hyperlipidemia and Depression who presents with dyspnea on exertion. Patient reports increasing dyspnea on exertion for the past several months. Symptoms have worsened to the point he cannot
walk up a flight of stairs without feeling short of breath. Patient had an echocardiogram yesterday which revealed significantly reduced EF as well global hypokinesis with inferior wall akineses. After receiving the result patient was referred to
the emergency departmen for evaliation. Ptient denies any chest pain, palpitaitons or lower extremity edema.
Newly Diagnosed Heart Failure with Reduced EF
Newly Diagnosed Cardiomyopathy, unknown type
- Appreciate cardiology input, status post cardiac catheterization 02/27 showing nonobstructive coronary artery disease, mildly elevated biventricular filling pressure
- Cardiology recommends treatment with aspirin, Crestor/high intensity statin for goal LDL less than 70, and added dapagliflozin and Entresto
- Medically stable for discharge, follow-up with cardiology in the office as directed, and his PCP in 1 week
Diabetes Mellitus, Type II with Hyperglycemia
-Metformin on hold s/p cardiac cath
-Continue Januvia and Glipizide
-Hemoglobin A1c 8.0, added dapagliflozin for CHF
Essential Hypertension
- Discontinue home hydrochlorothiazide, lisinopril, verapamil
- Cardiology recommends Toprol XL 25 mg twice a day, and Entresto
CKD Stage III
-Creatinine at baseline
-Monitor renal function closely as medications are added for heart failure
Hyperlipidemia
-Continue rosuvastatin
Depression
-Continue Cymbalta
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
DVT proph: subcu Lovenox daily
Code Status: Full Code
Physical Exam
General: No acute distress
HEENT: Normocephalic, Atraumatic, EOMI, MMM
Respiratory: Clear to Auscultation bilaterally
Cardiac: Normal S1/S2, Regular Rate and Rhythm
GI: Soft, Nontender, Nondistended, Normal Bowel Sounds
Extremities: No Clubbing, Cyanosis, or Edema
Neuro: Nonfocal/Grossly Intact
Psych: Calm, Cooperative
Derm: No Visible lesions
Anticipated Discharge: Today
Subjective/Interval History
-
Date of Service: February 28, 2025
Patient reports feeling well. Denies chest pain, shortness of breath. No dyspnea with activity. No fever, no vomiting.
Objective Data
-
Labs:
Laboratory Results
02/28/25
05:22
WBC 7.9
Hgb 12.8 L
Hct 36.7 L
Plt Count 149
Sodium 140
Potassium 3.9
Chloride 105
Carbon Dioxide 26
BUN 21 H
Creatinine 1.3
Glucose 176 H
Calcium 9.7
Vital Signs:
Vital Signs
Temp Pulse Resp BP Pulse Ox
98.3 F 64 14 159/84 98
02/28/25 07:43 02/28/25 07:43 02/28/25 07:43 02/28/25 07:43 02/28/25 07:43
I&O
02/27/25 02/28/25 03/01/25
06:59 06:59 06:59
Intake Total 240 / 240 1680 / 1680
Balance 240 / 240 1680 / 1680
[2025-02-28 09:41] LABS: Glucose - Point of Care 206 mg/dl (70-99)
[2025-02-28] MEDS: NOVOLOG FLEXPEN-LOW RESISTANCE 2 UNITS SC (09:42)
--- NOTE | 2025-02-28 11:23 | W.DCSUMMARY ---
Discharge Summary
Discharge Data
Date of Admission: 02/26/25
Date of Discharge: 02/28/25
-
Pending Results: No
Hospital Course
Discharge diagnosis:
Newly diagnosed heart failure with a reduced ejection fraction
Newly diagnosed nonischemic cardiomyopathy
Type 2 diabetes with hyperglycemia
Essential hypertension
Stage III chronic kidney disease
Hyperlipidemia
Depression
History of testicular cancer status post orchiectomy and lymph node dissection
Consults: Cardiology
Procedures:
02/27/2025 cardiac catheterization
CONCLUSIONS
1. 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
2. Mildly elevated biventricular filling pressure, normal pulmonary artery pressure, and reduced cardiac index.
RECOMMENDATIONS
1. Further workup for etiology of non-ischemic cardiomyopathy
2. Titration of GDMT for heart failure - will add dapagliflozin today and Entresto tonight (allowing 36 hours for NIKOLAI washout)
3. Aggressive secondary prevention of CAD with ASA and high intensity statin for goal LDL<70
Hospital course:
79-year-old male with a past medical history of newly diagnosed heart failure, type 2 diabetes, hypertension, chronic kidney disease, and history of testicular cancer status post orchiectomy who presented with dyspnea with activity.
Patient was seen in conjunction with cardiology. He underwent cardiac catheterization which showed nonobstructive coronary artery disease suggestive of nonischemic cardiomyopathy. Cardiology recommends GDMT. His lisinopril, verapamil, and
hydrochlorothiazide were permanently discontinued. He was started on and will be discharged on aspirin 81 mg daily, Crestor 20 mg daily, Toprol XL 25 mg twice a day, Entresto twice a day, and Farxiga. Patient is medically stable and cleared by
cardiology for discharge. He needs to follow-up with his primary care doctor in 1 week, cardiology in the office as scheduled.
Disposition: Home self-care
Discharge planning: Required 38 minutes
Discharge Plan
-
Patient Disposition: Home (Routine Discharge)
Discharge Diagnosis/Procedures: Heart failure with reduced ejection fraction, chronic kidney disease, nonobstructive coronary artery disease status post cardiac cath
Condition: Good
Diet: Low Cholesterol, 2 Gram Sodium and Diabetic, Carb Controlled
Driving Restrictions: No driving for 24 hours
Specialty Instructions: Weigh Daily- Call MD for wt gain/loss 3 lbs overnight/5 lbs in 1 week
Activity Restrictions/Additional Instructions:
Cardiology has adjusted your heart and blood pressure medications to improve the function of your heart.
Please follow-up with cardiology in the office as directed, and your primary care provider in 1 week.
Instructions: *CBC Heart Failure Instructions
Stand Alone Forms: DC Instructions- Cath/EP Lab
Referrals:
Monica Jernigan NP [Specified Professional Personl, Cardiology] - 03/19/25 11:00 am
Claritza Edward MD [Family Provider, Family Practice] - in one week
Prescriptions:
New
dapagliflozin propanediol 10 mg Tablet
10 mg PO DAILY Qty: 30 0RF
Entresto 24-26 mg Tablet
1 tab PO BID Qty: 60 0RF
metoprolol succinate 25 mg Tablet Extended Release 24 Hr
25 mg PO BID Qty: 60 0RF
Continued
aspirin 81 MG tablet,chewable
81 mg PO DAILY
rosuvastatin 20 MG tablet
20 mg PO DAILY
glipizide 10 mg tablet
10 mg PO BID
therapeutic multivitamin Tablet
1 tab PO DAILY
duloxetine 60 mg Capsule,Delayed Release(Dr/Ec)
60 mg PO DAILY
Held
Janumet XR 50-1,000 mg Tablet, Er Multiphase 24 Hr
1 tab PO BID
Hold Instructions: Resume on 03/03/25.
Discontinued
hydrochlorothiazide 25 MG tablet
25 mg PO DAILY
verapamil 240 mg Tablet Extended Release
240 mg PO DAILY
lisinopril 40 mg Tablet
40 mg PO DAILY
Discharge Orders:
Discharge Patient (As Directed); Ordered 02/28/25
Ordered By: Richar Navas
Discharge Date and Time
Discharge Date/Time: 02/28/25 13:09
Print Language: MALTESE
--- NOTE | 2025-02-28 11:35 | CM ---
ROXIE met with Dakota to complete IA. He reports being (I) amb and adls, drives. No DME. He lives alone, however his daughter lives next door in her own home.
Plan: Discharge to home with no identified needs
PCP: Claritza Edward
Pharmacy: [facility] on [address] in [place].
[2025-02-28 11:43] VITALS: BP 143/81
[2025-02-28 12:38] LABS: Glucose - Point of Care 240 mg/dl (70-99)
[2025-02-28] MEDS: NOVOLOG FLEXPEN-LOW RESISTANCE SC (12:57)
== END 2025-02-28 13:09 | disposition home or self-care (01) | DRG 286 ==
LOC: 3 WEST ACU 16:17
PROVIDERS: Emergency Medicine; Nurse Practitioner Adult Health; Physician Assistant Medical; Student in an Organized Health Care Education/Training Program; ADMITTING PHYSICIAN Hospitalist; ATTENDING PHYSICIAN Family Medicine; CONSULT PHYSICIAN Internal Medicine Cardiovascular Disease; EMERGENCY PHYSICIAN Student in an Organized Health Care Education/Training Program; FAMILY PHYSICIAN Family Medicine
PROC: 4A023N6 Measurement of Cardiac Sampling and Pressure, Right Heart, Percutaneous Approach (ICD-10-PCS; 2025-02-27)
PROC: B2141ZZ Fluoroscopy of Right Heart using Low Osmolar Contrast (ICD-10-PCS; 2025-02-27)
PROC: B2111ZZ Fluoroscopy of Multiple Coronary Arteries using Low Osmolar Contrast (ICD-10-PCS; 2025-02-27)
DX: I13.0 Hypertensive heart and chronic kidney disease with heart failure and stage 1 through stage 4 chronic kidney disease, or unspecified chronic kidney disease (principal); I50.21 Acute systolic (congestive) heart failure; I42.8 Other cardiomyopathies; Z79.82 Long term (current) use of aspirin; N18.30 Chronic kidney disease, stage 3 unspecified; E11.22 Type 2 diabetes mellitus with diabetic chronic kidney disease; E11.65 Type 2 diabetes mellitus with hyperglycemia; E78.00 Pure hypercholesterolemia, unspecified; F32.A Depression, unspecified
CPT/HCPCS: 71046; 80048; 80053; 80061; 82962; 83036; 83735; 83880; 84443; 84484; 85025; 85027; 93005; 93456; 99152; 99153; 99284; C1769; C1894; Q9967